=== PATIENT | male | born 1960 | race Caucasian/White ===

== ENCOUNTER 2018-09-17 18:57 | Inpatient (IN) | payer MEDICARE, OTHER ==
[2018-09-17] MEDS: SOD CHLORIDE 0.9% 500 ML IV (20:55)
[2018-09-17] MEDS: KETOROLAC 15 MG INJ IV (20:55)
[2018-09-17] MEDS: IPRATROPIUM (NEB) 0.5 MG/2.5 ML AMP INH (20:57)
[2018-09-17 20:58] LABS: ADD MAN DIFF? NO
[2018-09-17] MEDS: ALBUTEROL 0.5% (NEB) 2.5 MG/0.5 ML AMP INH (20:58)
[2018-09-17 21:00] LABS: BASOPHILS % 0.4 % (0.0-2.0); EOSINOPHILS # 0.2 10^3/ul (0.0-0.5); HEMATOCRIT 42.3 % (42.0-52.0); HEMOGLOBIN 14.3 g/dl (14.0-18.0); LYMPHOCYTES # 2.4 10^3/ul (0.8-2.9); LYMPHOCYTES % 29.6 % (15.0-51.0); MEAN CORPUSCULAR HEMOGLOBIN 28.8 pg (29.0-33.0); MEAN CORPUSCULAR HGB CONC 33.8 g/dl (32.0-37.0); MEAN CORPUSCULAR VOLUME 85.3 fl (82.0-101.0); MEAN PLATELET VOLUME 10.5 fl (7.4-10.4); MONOCYTES % 12.1 % (0.0-11.0); NEUTROPHIL # 4.4 10^3/ul (1.6-7.5); NEUTROPHILS % 54.7 % (39.0-77.0); PLATELET COUNT 320 10^3/UL (140-415); RED BLOOD COUNT 4.96 10^6/ul (4.70-6.10); RED CELL DISTRIBUTION WIDTH 13.7 % (11.5-14.5)
[2018-09-17 21:06] LABS: ALANINE AMINOTRANSFERASE 19 IU/L (13-69); ALBUMIN 4.4 g/dl (3.3-4.9); ALBUMIN/GLOBULIN RATIO 0.95; ALKALINE PHOSPHATASE 127 IU/L (42-121); ANION GAP 14 (5-13); ASPARTATE AMINO TRANSFERASE 35 IU/L (15-46); BILIRUBIN,INDIRECT 0.4 mg/dl (0-1.1); BILIRUBIN,TOTAL 0.4 mg/dl (0.2-1.3); BLOOD UREA NITROGEN 14 mg/dl (7-20); CALCIUM 9.3 mg/dl (8.4-10.2); CARBON DIOXIDE 27 mmol/L (21-31); CHLORIDE 100 mmol/L (97-110); CREATININE 0.87 mg/dl (0.61-1.24); Estimated GFR > 60 mL/min (>60); GLUCOSE 111 mg/dl (70-220); LIPASE 105 U/L (23-300); POTASSIUM 3.9 mmol/L (3.5-5.1); SODIUM 141 mmol/L (135-144)
[2018-09-17 21:18] LABS: TROPONIN-I < 0.012 ng/ml (0.000-0.120)
[2018-09-17] MEDS: ALBUTEROL 0.083% (NEB) 2.5 MG/3 ML AMP HHN (23:50)
[2018-09-17] MEDS: METHYLPREDNISOLONE 125 MG INJ IV (23:57)
[2018-09-18] MEDS ORDERED: BISACODYL (EC) 5 MG TAB PO
[2018-09-18] MEDS ORDERED: DOCUSATE SODIUM 100 MG CAP PO
[2018-09-18] MEDS ORDERED: ACETAMINOPHEN 325 MG TAB PO
[2018-09-18] MEDS ORDERED: ONDANSETRON 4 MG INJ IV
[2018-09-18] MEDS ORDERED: NACL 0.9% 3 ML SYG IV
[2018-09-18 00:52] LABS: D-DIMER 464.95 ng/ml (<460)
[2018-09-18] MEDS: IPRATROPIUM (NEB) 0.5 MG/2.5 ML AMP HHN ×4 (03:00→13:58)
[2018-09-18] MEDS: LEVALBUTEROL (NEB) 1.25 MG/0.5 ML AMP HHN ×4 (03:00→13:58)
[2018-09-18 05:46] LABS: ABNORMAL IP MESSAGE 1; ADD MAN DIFF? NO; BASOPHILS % 0.1 % (0.0-2.0); HEMATOCRIT 41.6 % (42.0-52.0); HEMOGLOBIN 13.7 g/dl (14.0-18.0); LYMPHOCYTES # 0.5 10^3/ul (0.8-2.9); LYMPHOCYTES % 5.3 % (15.0-51.0); MEAN CORPUSCULAR HEMOGLOBIN 28.5 pg (29.0-33.0); MEAN CORPUSCULAR HGB CONC 32.9 g/dl (32.0-37.0); MEAN CORPUSCULAR VOLUME 86.7 fl (82.0-101.0); MONOCYTE # 0.1 10^3/ul (0.3-0.9); MONOCYTES % 0.8 % (0.0-11.0); NEUTROPHIL # 8.1 10^3/ul (1.6-7.5); NEUTROPHILS % 93.3 % (39.0-77.0); PLATELET COUNT 273 10^3/UL (140-415); POSITIVE DIFF @See below; RED CELL DISTRIBUTION WIDTH 13.8 % (11.5-14.5)
[2018-09-18 05:46] LABS: WHITE BLOOD COUNT 8.7 10^3/ul (4.8-10.8)
[2018-09-18 05:56] LABS: HEMOGLOBIN A1C 5.7 % (0-5.9)
[2018-09-18] MEDS ORDERED: HYDROCODONE/APAP (5/325) TAB PO (06:00)
[2018-09-18 06:04] LABS: ALANINE AMINOTRANSFERASE 15 IU/L (13-69); ALBUMIN 4.2 g/dl (3.3-4.9); ALBUMIN/GLOBULIN RATIO 0.95; ALKALINE PHOSPHATASE 126 IU/L (42-121); ANION GAP 12 (5-13); ASPARTATE AMINO TRANSFERASE 30 IU/L (15-46); BILIRUBIN,INDIRECT 0.4 mg/dl (0-1.1); BILIRUBIN,TOTAL 0.4 mg/dl (0.2-1.3); BLOOD UREA NITROGEN 14 mg/dl (7-20); CALCIUM 8.9 mg/dl (8.4-10.2); CARBON DIOXIDE 25 mmol/L (21-31); CHLORIDE 103 mmol/L (97-110); CHOL/HDL RATIO 3.6 RATIO; CHOLESTEROL 140 mg/dl (100-200); CREATININE 0.77 mg/dl (0.61-1.24); Estimated GFR > 60 mL/min (>60); GLUCOSE 157 mg/dl (70-220); HDL CHOLESTEROL 38 mg/dl (28-71); LDL CHOLESTEROL,CALCULATED 91 mg/dl; POTASSIUM 3.7 mmol/L (3.5-5.1); SODIUM 140 mmol/L (135-144); TOTAL PROTEIN 8.6 g/dl (6.1-8.1); TRIGLYCERIDES 54 mg/dl (0-149)
[2018-09-18] MEDS: PANTOPRAZOLE (EC) 40 MG TAB PO (06:50)
[2018-09-18] MEDS: ENOXAPARIN 40 MG/0.4 ML SYG SC (06:51)
[2018-09-18 07:12] LABS: THYROID STIMULATING HORMONE 0.694 MIU/L (0.465-4.680)
[2018-09-18] MEDS ORDERED: NON-FORMULARY/PATIENT OWN MED (Cetirizine Hcl* (Zyrtec*) 10 MG) PO (09:00)
[2018-09-18] MEDS ORDERED: NON-FORMULARY/PATIENT OWN MED (Omeprazole* 40 MG) PO (09:00)
[2018-09-18] MEDS: predniSONE 20 MG TAB PO (09:11)
[2018-09-18] MEDS: FLUTICASONE 0.05% 16 GM NAS SPRAY NASAL (09:11)
[2018-09-18] MEDS: LORATADINE 10 MG TAB PO (09:11)
[2018-09-18] MEDS ORDERED: ATORVASTATIN 20 MG TAB PO (21:00)
[2018-09-18] MEDS ORDERED: TAMSULOSIN (SR) 0.4 MG CAP PO (21:00)
== END 2018-09-18 14:17 | disposition home or self-care (01) | DRG 204 ==
LOC: 6WM 23:44 → E/R 18:57
PROC: 3E0F7GC Introduction of Other Therapeutic Substance into Respiratory Tract, Via Natural or Artificial Opening (ICD-10-PCS; principal; 2018-09-17)
DX: R05 Cough (principal); R00.0 Tachycardia, unspecified; I10 Essential (primary) hypertension; K21.9 Gastro-esophageal reflux disease without esophagitis; R73.03 Prediabetes; E78.5 Hyperlipidemia, unspecified; N40.0 Benign prostatic hyperplasia without lower urinary tract symptoms
CPT/HCPCS: 36415; 71045; 74176; 80053; 80061; 83036; 83690; 83735; 84443; 84484; 85025; 85378; 87400; 93005; 93970; 94640; 94644; 94645; 94664; 96374; 99285-25